=== PATIENT | female | born 1995 | race African-American/Black ===

== ENCOUNTER 2019-11-14 10:39 | Emergency (ER) | payer SELFPAY ==
[~2019-11-14] VITALS: Ht 175.3 cm; Wt 62.6 kg
--- NOTE | 2019-11-14 10:48 | NUR ---
ED Nurse Note: pt arrives in [facility] custody relating multiple areas of body pain. brought in by the medical center for medical clearance.
--- NOTE | 2019-11-14 10:57 | NUR ---
ED Nurse Note: pt carlos manuel by .
--- NOTE | 2019-11-14 11:00 | NUR ---
ED Nurse Note: pt amb steady gait. awaitng further dispo. no n/v/fever/cough. 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 pt appears NAD.
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
[2019-11-14] MEDS ORDERED: ACETAMINOPHEN500 M3 ORAL (11:03)
--- NOTE | 2019-11-14 11:08 | NUR ---
ED Nurse Note: Pt cleared by health care Provider for discharge. DC instructions/prescription was explained to pt and verbalized understanding of teachings. All medical devices such as ID band removed. Pt is AAO x4, ambulatory and left with all personal belongings. pt d/c in [employer] maintenance [facility] custody. a/ox4 and amb steady gait.
[2019-11-14 11:09] VITALS: BP 102/63
== END 2019-11-14 11:15 | disposition home or self-care (01) ==
LOC: EMR 11:01
DX: M54.5 Low back pain (principal); M25.539 Pain in unspecified wrist; R51 Headache; M54.2 Cervicalgia
CPT/HCPCS: 99281